=== PATIENT | male | born 2000 | race Two or more races ===

== ENCOUNTER → 2023-02-25 | Emergency (ER) | payer SELFPAY ==
[~2023-02-25] MED LIST: HYDROMORPHONE HCL 1 MG/ML INJ ONE; KETOROLAC 30 MG/ML INJ ONE; ONDANSETRON 4 MG/2 ML VIAL ONE
--- NOTE | 2023-02-25 22:31 | RAD REPORT ---
EXAM DESCRIPTION: RAD - Shoulder Left 2 View - 02/25/2023 10:23 pm CLINICAL HISTORY: PAIN COMPARISON: No comparisons FINDINGS/IMPRESSION: No acute fracture. No malalignment. No significant focal degenerative changes.
--- NOTE | 2023-02-25 22:43 | EDPHYS ---
Physician Documentation [facility] Name: Good Weathers Age: 22 yrs Sex: Male : 2000 Arrival Date: 02/25/2023 Time: 21:51 Bed 18 Private MD: ED Physician Brent Hubbard HPI: 02/25 21:53 This 22 yrs old Male presents to ER via Unassigned with complaints of Shoulder Injury. kb 21:53 Patient is a 22-year-old male who presents for shoulder dislocation on the left side. kb States he dislocated just while getting up out of bed. States has had it dislocated several times in the past.. Historical: - Allergies: 21:54 No Known Allergies; rv - Home Meds: 21:54 None [Active]; rv - PMHx: 21:54 None; rv - PSHx: 21:54 None; rv - Immunization history:: Adult Immunizations up to date. - Social history:: Smoking status: Patient denies any tobacco usage or history of. ROS: 21:54 Constitutional: Negative for fever, chills, and weight loss, kb 21:54 MS/extremity: Positive for decreased range of motion, deformity, pain, tenderness, of the left shoulder, 21:54 All other systems are negative, Exam: 21:54 Constitutional: This is a well developed, well nourished patient who is awake, alert, kb and in no acute distress. Head/Face: Normocephalic, atraumatic. ENT: Moist Mucous membranes Cardiovascular: Regular rate Respiratory: Respirations even and unlabored. No increased work of breathing. Talking in full sentences Abdomen/GI: Soft, non-tender. No distention Skin: Warm, dry with normal turgor. Normal color. Neuro: Awake and alert, GCS 15, oriented to person, place, time, and situation. Moves all extremities. Normal gait. 21:54 Musculoskeletal/extremity: Extremities: grossly normal except: noted in the left shoulder: decreased ROM, pain, swelling, tenderness, ROM: limited active range of motion, limited passive range of motion, limited active range of motion due to pain, limited passive range of motion due to pain, Circulation is intact in all extremities. Sensation intact. anterior fullness to left shoulder. Vital Signs: 21:53 Weight 86.18 kg; Height 5 ft. 10 in. ; rv 22:45 BP 130 / 86; Pulse 95; Resp 18 S; Pulse Ox 98% on R/A; jw7 21:53 Body Mass Index 27.26 (86.18 kg, 177.8 cm) rv Procedures: 22:17 Reduction: of the left shoulder, using traction, manipulation, Immobilized with sling, kika Patient tolerated well. Post reduction film - reveals normal alignment. MDM: 21:53 Patient medically screened. kb 21:56 Differential diagnosis: Anterior dislocation with fracture, Anterior dislocation kb without fracture, Posterior dislocation with fracture, Posterior dislocation without fracture. Data reviewed: vital signs, nurses notes. 22:42 Counseling: I had a detailed discussion with the patient and/or guardian regarding the kb historical points, exam findings, and any diagnostic results supporting the discharge/admit diagnosis, radiology results, the need for outpatient follow up, a orthopedic surgeon, to return to the emergency department if symptoms worsen or persist or if there are any questions or concerns that arise at home. 02/25 21:54 Order name: Shoulder Left (2 View) XRAY; Complete Time: 22:39 kb 02/25 21:54 Order name: IV Start; Complete Time: 21:57 kb Administered Medications: 22:06 Drug: HYDROmorphone IVP 1 mg IVP once Route: IVP; Site: right antecubital; jw7 23:05 Follow up: Response: No adverse reaction; Marked relief of symptoms jw7 22:06 Drug: Ketorolac IVP 15 mg IVP once Route: IVP; Site: right antecubital; jw7 23:05 Follow up: Response: No adverse reaction; Marked relief of symptoms jw7 22:06 Drug: Ondansetron IVP 4 mg IVP once; over 2 minutes Route: IVP; Site: right antecubital;jw7 23:05 Follow up: Response: No adverse reaction jw7 22:30 Drug: HYDROmorphone IVP 1 mg IVP once Route: IVP; Site: right antecubital; jw7 23:05 Follow up: Response: No adverse reaction jw7 22:30 Drug: Ketorolac IVP 15 mg IVP once Route: IVP; Site: right antecubital; jw7 23:05 Follow up: Response: No adverse reaction jw7 Disposition Summary: 02/25/23 22:43 Discharge Ordered Notes: Location: Home kb Condition: Stable kb Diagnosis - Other dislocation of left shoulder joint kb Followup: kb - With: Emergency Department - When: As needed - Reason: Worsening of condition Followup: kb - With: Private Physician - When: 2 - 3 days - Reason: Recheck today's complaints, Continuance of care, Re-evaluation by your physician Discharge Instructions: - Discharge Summary Sheet kb - Shoulder Dislocation, [id number] kb Forms: - Medication Reconciliation Form kb - Thank You Letter kb - Antibiotic Education kb - Prescription Opioid Use kb - Patient Portal Instructions kb - Leadership Thank You Letter kb - Work release form jw7 Signatures: Dispatcher [employer] EDMS Marimar Rosario, FORMS ANALYST-C FORMS ANALYST-Brent Marcos MD MD cha Vicente, Ronaldo, RN RN Liliana Locke RN RN jw7 Corrections: (The following items were deleted from the chart) 21:56 21:54 Musculoskeletal/extremity: Extremities: grossly normal except: noted in the left kb shoulder: decreased ROM, pain, swelling, tenderness, ROM: limited active range of motion, limited passive range of motion, limited active range of motion due to pain, limited passive range of motion due to pain, Circulation is intact in all extremities. Sensation intact. kb
--- NOTE | 2023-02-25 22:43 | ER ---
Nurse's Notes [facility] Name: Good Weathers Age: 22 yrs Sex: Male : 2000 Arrival Date: 02/25/2023 Time: 21:51 Bed 18 Private MD: Diagnosis: Other dislocation of left shoulder joint Presentation: 02/25 21:53 Chief complaint: Patient states: left shoulder pain, possible dislocation. unable to rv move or rotate. Coronavirus screen: At this time, the client does not indicate any symptoms associated with coronavirus-19. Ebola Screen: No symptoms or risks identified at this time. Initial Sepsis Screen: Does the patient meet any 2 criteria? No. Patient's initial sepsis screen is negative. Does the patient have a suspected source of infection? No. Patient's initial sepsis screen is negative. Risk Assessment: Do you want to hurt yourself or someone else? Patient reports no desire to harm self or others. Onset of symptoms was February 25, 2023. 21:53 Method Of Arrival: Ambulatory rv 21:53 Acuity: OLLIE 3 rv Triage Assessment: 21:54 General: Appears uncomfortable, Behavior is calm, cooperative. Pain: Complains of pain rv in left shoulder. Neuro: Level of Consciousness is awake, alert, obeys commands, Oriented to person, place, time, situation. Cardiovascular: Capillary refill < 3 seconds Patient's skin is warm and dry. Respiratory: Airway is patent Respiratory effort is even, unlabored. GI: No signs and/or symptoms were reported involving the gastrointestinal system. Musculoskeletal: Range of motion: limited in left shoulder and left elbow. Injury Description: dislocated joint-left shoulder. Historical: - Allergies: 21:54 No Known Allergies; rv - Home Meds: 21:54 None [Active]; rv - PMHx: 21:54 None; rv - PSHx: 21:54 None; rv - Immunization history:: Adult Immunizations up to date. - Social history:: Smoking status: Patient denies any tobacco usage or history of. Screenin:55 [facility] ED Fall Risk Assessment (Adult) History of falling in the last 3 months, rv including since admission No falls in past 3 months (0 pts) Score/Fall Risk Level 0 - 2 = Low Risk Oriented to surroundings, Maintained a safe environment, Educated pt \T\ family on fall prevention, incl call for assistance when getting out of bed, Assessed \T\ reinforced patient's understanding of fall precautions. Abuse screen: Denies threats or abuse. Denies injuries from another. Nutritional screening: No deficits noted. Tuberculosis screening: No symptoms or risk factors identified. Assessment: 22:00 General: see triage assessment. jw7 22:50 Reassessment: Patient appears in no apparent distress at this time. Patient and/or jw7 family updated on plan of care and expected duration. Pain level reassessed. Patient is alert, oriented x 3, equal unlabored respirations, skin warm/dry/pink. Patient states feeling better. Patient states symptoms have improved. Vital Signs: 21:53 Weight 86.18 kg; Height 5 ft. 10 in. ; rv 22:45 BP 130 / 86; Pulse 95; Resp 18 S; Pulse Ox 98% on R/A; jw7 21:53 Body Mass Index 27.26 (86.18 kg, 177.8 cm) rv ED Course: 21:51 Patient arrived in ED. jj6 21:54 Triage completed. rv 21:55 Arm band placed on right wrist. rv 21:55 Patient has correct armband on for positive identification. Client placed on continuous rv cardiac and pulse oximetry monitoring. NIBP monitoring applied. 21:56 Marimar [facility]ario [facility]-C [facility] kb 21:56 Brent Hubbard MD is Attending Physician. kb 21:57 Inserted saline lock: 20 gauge in right antecubital area, using aseptic technique. jw7 22:25 Shoulder Left (2 View) XRAY In Process Unspecified. EDMS 22:30 relocating, dislocated left shoulder, pt tolerated well and placement verified with jw7 xray. 23:02 Provided Education on: discharge instructions and follow-up care. jw7 23:02 IV discontinued, intact, bleeding controlled, No redness/swelling at site. Pressure jw7 dressing applied. Administered Medications: 22:06 Drug: HYDROmorphone IVP 1 mg IVP once Route: IVP; Site: right antecubital; jw7 23:05 Follow up: Response: No adverse reaction; Marked relief of symptoms jw7 22:06 Drug: Ketorolac IVP 15 mg IVP once Route: IVP; Site: right antecubital; jw7 23:05 Follow up: Response: No adverse reaction; Marked relief of symptoms jw7 22:06 Drug: Ondansetron IVP 4 mg IVP once; over 2 minutes Route: IVP; Site: right antecubital;jw7 23:05 Follow up: Response: No adverse reaction jw7 22:30 Drug: HYDROmorphone IVP 1 mg IVP once Route: IVP; Site: right antecubital; jw7 23:05 Follow up: Response: No adverse reaction jw7 22:30 Drug: Ketorolac IVP 15 mg IVP once Route: IVP; Site: right antecubital; jw7 23:05 Follow up: Response: No adverse reaction jw7 Medication: 21:55 VIS not applicable for this client. rv Outcome: 22:43 Discharge ordered by MD. richard 23:02 Discharged to home ambulatory, with family, jw7 23:02 Condition: stable 23:02 Discharge instructions given to patient, Instructed on discharge instructions, follow up and referral plans. Demonstrated understanding of instructions, follow-up care, 23:07 Patient left the ED. jw7 Signatures: Dispatcher [employer] EDMS Marimar Rosario, ANODE ADJUSTER-C ANODE ADJUSTER-CkBlas Chapman, RN RN rv Lubna [id number] Liliana Narayan, RN RN jw7 Corrections: (The following items were deleted from the chart) :55 21:55 No provider procedures requiring assistance completed. rv rv
[2023-02-26 02:51] VITALS: BP 130/86; O2SAT 98
== END ==
LOC: ER 21:51
DX: S43.085A Other dislocation of left shoulder joint, initial encounter (principal)
CPT/HCPCS: 96374; 96375; 99284; J1170; J2405